=== PATIENT | female | born 1940 | race Caucasian/White ===

== ENCOUNTER 2022-05-31 00:47 | Emergency (ER) | payer OTHER ==
[~2022-05-31] VITALS: Ht 154.9 cm; Wt 69.8 kg
[2022-05-31] MEDS ORDERED: PRED20TA2 PO (03:15)
[2022-05-31 05:20] VITALS: BP 135/51
== END 2022-05-31 06:03 | disposition home or self-care (01) ==
LOC: ER 00:47
DX: S40.011A Contusion of right shoulder, initial encounter (principal); M54.2 Cervicalgia; M25.562 Pain in left knee; M25.561 Pain in right knee; W01.190A Fall on same level from slipping, tripping and stumbling with subsequent striking against furniture, initial encounter; Y93.89 Activity, other specified; Y92.89 Other specified places as the place of occurrence of the external cause; Y99.8 Other external cause status
CPT/HCPCS: 70450; 72125; 73030; 73560